=== PATIENT | male | born 2005 | race Caucasian/White ===

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

== ENCOUNTER 2025-03-03 23:37 | Emergency (ER) | payer OTHER ==
[~2025-03-03] VITALS: Ht 180.3 cm; Wt 113.4 kg
== END 2025-03-04 04:54 | disposition home or self-care (01) ==
LOC: ED 23:37
DX: S16.1XXA Strain of muscle, fascia and tendon at neck level, initial encounter (principal); S20.212A Contusion of left front wall of thorax, initial encounter; S70.02XA Contusion of left hip, initial encounter; M54.50 Low back pain, unspecified; V69.49XA Driver of heavy transport vehicle injured in collision with other motor vehicles in traffic accident, initial encounter; Y93.89 Activity, other specified; Y92.488 Other paved roadways as the place of occurrence of the external cause; Y99.8 Other external cause status